=== PATIENT | female | born 1990 | race Caucasian/White ===

== ENCOUNTER 2017-11-04 11:17 | Emergency (ER) | payer SELFPAY ==
[~2017-11-04] VITALS: Ht 154.9 cm; Wt 73.8 kg
[~2017-11-04 11:17] MED LIST: TRIVORA-281 EACH PO
[2017-11-04 12:19] LABS: BASOPHIL (%) 0.4 % (0-1); BASOPHIL COUNT 0.1 K/uL (0-0.1); EOSINOPHIL (%) 0.2 % (0-5); HEMATOCRIT 40.7 % (36.0-46.0); HEMOGLOBIN 13.1 G/DL (11.9-15.5); IMMATURE GRANULOCYTE (%) 0.4 % (0.0-0.7); LYMPHOCYTE (%) 7.8 % (15-42); LYMPHOCYTE COUNT 1.2 K/uL (1.0-2.8); MCH 28.7 PG (29.0-34.0); MCHC 32.2 G/DL (30.0-36.0); MCV 89.3 FL (83-99); MONOCYTE (%) 3.8 % (3-12); MONOCYTE COUNT 0.6 K/uL (0-0.8); NEUTROPHIL (%) 87.4 % (45-76); NEUTROPHIL COUNT 13.2 K/uL (1.8-6.4); PLATELET COUNT 393 K/uL (156-360); RBC DIS.WIDTH-CV 12.7 % (11.8-14.6); RBC DIS.WIDTH-SD 41.6 % (39-53); RED BLOOD COUNT 4.56 M/uL (3.80-5.20); WHITE BLOOD COUNT 15.1 K/uL (4.1-10.2)
[2017-11-04 12:29] LABS: ALBUMIN 4.1 g/dL (3.2-4.8); CHLORIDE 105 mEq/L (99-109); SODIUM 140 mEq/L (136-147)
[2017-11-04 12:31] LABS: GLUCOSE 130 mg/dL (70-99); TOTAL PROTEIN 7.4 g/dL (6.4-8.3)
[2017-11-04 12:33] LABS: TOTAL BILIRUBIN 0.4 mg/dL (0.0-1.0)
[2017-11-04 12:35] LABS: ALKALINE PHOSPHATASE 110 IU/L (3-129); CREATININE 0.8 mg/dL (0.6-1.3); GFR ESTIMATE (CALCULATED) > 59 mL/min/
[2017-11-04 12:36] LABS: UREA NITROGEN (BUN) 10 mg/dL (9-23)
[2017-11-04 12:37] LABS: AST (GOT) 11 IU/L (2-34); DIRECT BILIRUBIN 0.2 mg/dL (0.0-0.3)
[2017-11-04 12:38] LABS: ALT (GPT) 20 IU/L (3-49); LIPASE 20 U/L (1.0-51.0)
[2017-11-04 13:24] LABS: THYROTROPIN (TSH) 0.96 MIU/L (0.4-5.5)
[2017-11-04 14:27] LABS: APPEARANCE CLOUDY ((CLEAR)); BILIRUBIN NEGATIVE; BLOOD LARGE; COLOR AMBER ((YELLOW)); GLUCOSE (STRIP) NEGATIVE; KETONES 20; LEUKOCYTES NEGATIVE; NITRITE NEGATIVE; PROTEIN (STRIP) 100; SPECIFIC GRAVITY 1.026 (1.000-1.030); UROBILINOGEN 0.2 MG/DL (0.2-1.0)
[2017-11-04 14:44] LABS: RED BLOOD CELLS TNTC /HPF (0-5); UCUL ADDED? YES
[2017-11-04] MEDS ORDERED: ZOFRAN4 MG PO (15:30)
[2017-11-04] MEDS ORDERED: ROXICODONE5 MG PO (15:30)
[2017-11-04] MEDS ORDERED: FLOMAX0.4 MG PO (15:35)
[2017-11-04 16:26] VITALS: BP 113/72
== END 2017-11-04 16:26 | disposition home or self-care (01) ==
LOC: EME 11:17
PROVIDERS: Emergency Medicine
DX: N13.2 Hydronephrosis with renal and ureteral calculous obstruction (principal); G47.411 Narcolepsy with cataplexy; F32.9 Major depressive disorder, single episode, unspecified; F41.9 Anxiety disorder, unspecified; Z79.3 Long term (current) use of hormonal contraceptives; Z87.42 Personal history of other diseases of the female genital tract; Z87.442 Personal history of urinary calculi
CPT/HCPCS: 74176; 80048; 80076; 81003; 81025; 83690; 84443; 85025; 87086; 99281; 99285; J0696; J1200; J1885; J2405; J7030